=== PATIENT | female | born 1935 | race Caucasian/White ===

== ENCOUNTER 2023-09-05 17:52 | Inpatient (IN) | payer MEDICARE, BC, SELFPAY ==
[2023-09-05] VITALS (10 sets, daily range): BP systolic 91–123; BP diastolic 54–87; BMI 21.3
[2023-09-05 14:38] LABS: % Basophils 0.4 % (0-2); % Monocytes 7.4 % (1.7-9.3); % Neutrophils 80.2 % (42.2-75.2); Absolute Immature Granulocytes 0.1 10^3/uL (0-0.05); Absolute Lymphocytes 1.2 10^3/uL (1.2-3.4); Absolute Monocytes 0.8 10^3/uL (0.1-0.6); Absolute Neutrophils 8.4 10^3/uL (1.4-6.5); Hematocrit 35.1 % (37.0-47.0); Hemoglobin 11.7 g/dL (12.0-16.0); Mean Corp Hgb Conc. 33.3 g/dL (33.0-37.0); Mean Corpuscular Hgb 28.8 pg (27.0-31.0); Mean Corpuscular Volume 86.5 fL (81.0-99.0); Mean Platelet Volume 9.8 fL (7.4-10.4); Nucleated Red Blood Cells % 0 %; Platelet Count 309 10^3/uL (130-400); Red Blood Cell Count 4.06 10^6/uL (4.20-5.40); Red Cell Dist. Width 13.5 % (11.5-14.5); White Blood Cell Count 10.5 10^3/uL (4.8-10.8)
[2023-09-05 14:58] LABS: Urine Albumin 1+ (Neg - Trace); Urine Bilirubin 1+ (Negative); Urine Character Very Cloudy (Clear); Urine Color Yellow; Urine Glucose 3+ (Negative); Urine Ketone 3+ (Negative); Urine Leukocyte 2+ (Negative); Urine Nitrite Positive (Negative); Urine Occult Blood 3+ (Negative); Urine Specific Gravity 1.025 (<1.030); Urine Urobilinogen Negative (Neg - 1+)
[2023-09-05 15:06] LABS: ALT (SGPT) < 10 U/L (0-35); AST (SGOT) 19 U/L (14-36); Albumin 3.4 g/dl (3.5-5.0); Alkaline Phosphatase 152 U/L (38-126); Blood Urea Nitrogen 18 mg/dl (7-17); Calcium 9.1 mg/dl (8.4-10.2); Carbon Dioxide 27 mmol/L (22-30); Chloride 95 mmol/L (98-107); Glucose 356 mg/dl (70-99); Sodium 128 mmol/L (135-145); Total Protein 6.4 g/dl (6.3-8.2); eGFR > 60.00
[2023-09-05 15:09] LABS: Urine Squamous Cell 0-2 /LPF (Few)
[2023-09-05 15:10] LABS: Urine Bacteria Many (Negative); Urine Red Blood Cell 26-30 /HPF (0-2); Urine White Cell >100 /HPF (0-5)
[2023-09-05 15:33] LABS: Troponin I 0.484 ng/ml
--- NOTE | 2023-09-05 15:45 | ED.GENMED ---
History of Present Illness
General
Chief Complaint: Change in Mental Status
Source: records
Exam Limitations: dementia
Time Seen by Provider: 09/05/23 14:48
Travel History
Have you had any contact with someone who has COVID-19?: Unable to Answer
Do you have any symptoms of coronavirus? Fever > 100 degrees, chills, cough, shortness of breath, sore throat, loss of taste or smell, muscle aches, or headache?: Unable to Answer
History of Present Illness
History of Present Illness:
88-year-old female sent for increased fatigue weakness some increased confusion. Patient states she vomited this morning. Denies chest pain shortness of breath or other complaints. Minimal symptoms currently.
Past History
Past History
ED Past Medical History: HTN, Hypercholesterolemia, NIDDM and Other (Anxiety, depression, rheumatoid arthritis, polymyalgia rheumatica, Parkinson's disease)
Review of Systems
Review of Systems
All Other Systems: Not applicable
Constitutional: Denies fever
Respiratory: Reports no symptoms
Cardiac: Reports no symptoms
Phy Exam
Physical Exam
Physical Exam:
GENERAL: Alert and oriented x 1 in no apparent distress. Elderly and frail
EYE: Orbits normal.
NECK: Supple, no significant adenopathy.
ENT: Pharynx without erythema Black coated tongue
CARDIAC: Regular rate and rhythm without any obvious murmurs.
LUNGS: Clear breath sounds,normal
ABDOMEN: Soft, without focal tenderness or distention
NEUROLOGICAL: Alert and oriented x 1, grossly non-focal
SKIN: Warm and dry, no rash or lesion, no discoloration, skin intact.
MUSCULOSKELETAL: No edema,no deformity.Good color
PSYCH: Normal and appropriate interaction.
Course
Orders/Labs/Results
Orders:
Orders
09/05/23 14:07
Electrocardiogram (*1) Urgent
Reason for Study: CAD
EKG- Treatment ONCE
09/05/23 14:09
Basic Metabolic Panel Urgent
Complete Blood Count/With Diff Urgent
Comprehensive Metabolic Panel Urgent
Osmolality, Random Urine Urgent
Date Specimen was Collected: 09/05/23
Time Specimen was Collected: 14:07
Comment: ADD ON
Urinalysis Reflex To Culture Urgent
Date Specimen was Collected: 09/05/23
Time Specimen was Collected: 14:07
Urine Microscopic Reflex Cult Urgent
Urine Sodium Urgent
Date Specimen was Collected: 09/05/23
Time Specimen was Collected: 14:07
Comment: ADD ON
Urine Culture Urgent
CHAN Source: U
Specimen Description:
Date Specimen was Collected: 09/05/23
Time Specimen was Collected: 14:07
09/05/23 14:44
EKG [Electrocardiogram (*1)] Urgent
Reason for Study: Abnormal EKG
EKG- Treatment ONCE
09/05/23 14:47
Troponin I Urgent
09/05/23 15:44
IV Insert/Care/Rem.- Treatment PRN
0.9% Sodium Chloride 1000 ml [Nss] 1,000 ml IV BOLUS
Cefepime HCl [Maxipime] 2,000 mg IV NOW STA
09/05/23 16:39
Lactic Acid Q4H
Comment: CANCEL 2nd LACTIC ACID IF 1st LACTIC ACID IS LESS THAN 2
Troponin I Q8H
Blood Culture Q30M
CHAN Source: Blood/Venous
Specimen Description:
09/05/23 16:40
Admit/Transfer Patient As Directed
Co-Sign Provider:
Level of Care: Inpatient admission
Assign to:: Telemetry
Physician / Group: Zayas
Diagnosis: UTI, Elevated Trop
Reason for Telemetry: Arrhythmia
Date to Stop Telemetry: 09/08/23
Time to Stop Telemetry: 11:00
Reason for Hospitalization: IV abx
Expected length of stay greater than two midnights?: Yes
ELOS- Estimated Length of Stay in days: 3
I certify the patient meets the requirements for IP care: Yes
09/05/23 16:41
Sterile Water [Sterile Water For Injection] 10 ml .ROUTE .STK-MED ONE
09/05/23 16:43
Code Status As Directed
Resuscitation Status: Do not resuscitate
Based on pt advanced directive or healthcare POA form: Yes
DNR Bracelet Application ONCE
09/05/23 16:47
Blood Culture Q30M
CHAN Source: Blood/Venous
Specimen Description:
09/05/23 17:02
Add On- LAB Routine
Tests Added?: urine sodium, urine osmo
09/06/23 00:30
Troponin I Q8H
09/06/23 06:00
Echo 2D MMode Color/Doppler Routine
Reason for Study: Abnormal EKG, troponin elevation.
09/06/23 08:30
Troponin I Q8H
09/08/23 11:00
DC Protocol for Telemetry ONCE
Abnormal Lab Results
09/05/23 09/05/23 09/05/23
14:09 14:47 16:39
RBC 4.06 L 10^6/uL
(4.20-5.40)
Hgb 11.7 L g/dL
(12.0-16.0)
Hct 35.1 L %
(37.0-47.0)
Abs Immat Gran (auto) 0.1 H 10^3/uL
(0-0.05)
Absolute Neuts (auto) 8.4 H 10^3/uL
(1.4-6.5)
Absolute Monos (auto) 0.8 H 10^3/uL
(0.1-0.6)
Immature Gran % 1.0 H %
(0-0.5)
Neutrophils % 80.2 H %
(42.2-75.2)
Lymphocytes % 11.0 L %
(20.5-51.1)
Sodium 128 L mmol/L
(135-145)
Chloride 95 L mmol/L
(98-107)
BUN 18 H mg/dl
(7-17)
Creatinine 0.5 L mg/dL
(0.6-1.0)
Glucose 356 H mg/dl
(70-99)
Alkaline Phosphatase 152 H U/L
(38-126)
Troponin I 0.484 H* ng/ml 0.433 H* ng/ml
Albumin 3.4 L g/dl
(3.5-5.0)
Urine Ketones 3+ A
(Negative)
Ur Occult Blood Reflex 3+ A
(Negative)
Urine Nitrite (Reflex) Positive A
(Negative)
Urine Bilirubin 1+ A
(Negative)
Leukocyte Esterase Rfl 2+ A
(Negative)
Urine RBC 26-30 A /HPF
(0-2)
Urine WBC (Reflex) >100 A /HPF
(0-5)
Urine Bacteria (Reflex) Many A
(Negative)
Urine Sodium 12 L mmol/L
(30-90)
Urine Glucose 3+ A
(Negative)
Urine Albumin (Reflex) 1+ A
(Neg - Trace)
09/05/23 14:09
09/05/23 14:09
Vital Signs
Initial and Last Documented VS:
Initial Vital Signs
Pulse Resp
99 11
09/05/23 14:12 09/05/23 14:12
Last Documented Vital Signs
Temp Pulse Resp BP
97.5 F 92 22 98/56
09/05/23 14:15 09/05/23 18:00 09/05/23 18:00 09/05/23 18:00
*Pulse Oximetry
Patient hypoxic: no
*EKG
Interpreted by ED Provider?: Yes
Interpretation: abnormal
Comparison EKG: changes noted
Heart Rate: 96
Rate: normal
Rhythm: sinus
[place]: normal axis
Interval: normal interval
QRS Pattern: normal QRS
Ischemia: ST elevation (V2 and V1.)
*Rough Carpenter Interpretation
Rate: normal
Interpretation: normal
Heart Rate: 85
Rhythm: sinus
*Critical Care Note
Total Time (30-74mins, 75-104mins- exclusive of procedures): 40
Data Reviewed
Review of Other/Old Records Reveals: Labs, Records and Discharge Summary
Update Note
Update Note:
Initial EKG suspicious for STEMI. EKG was repeated and unchanged. However patient has no acute cardiac symptoms denying chest pain shortness of breath and is in no distress. Contacted cardiology and invasive cardiology immediately. Invasive
cardiology evaluated and felt not a candidate for STEMI. They were informed of the troponin however. Family will also be updated.
ED Attending Note
-
Portions of this chart may have been created with voice recognition software.� Occasional wrong word or��sound alike� substitutions may have occurred due to the inherent limitations of voice recognition software.
Discharge Plan
Departure
Patient Disposition: Admit
Date of Disposition: 09/05/23
Time of Disposition: 15:47
Presentation/result/management discussed w/ accepting MD/DO: Cardiology
Discharge Problem:
Acute [place], Recurrent UTI, Hyponatremia
Interventions
Interventions:
*Risk Screen - Suicide Last Done: 09/05/23 14:24
*General Assessment Last Done: 09/05/23 14:24
*Neglect/Abuse Screening Last Done: 09/05/23 14:24
ED- Fall Risk Assessment Last Done: 09/05/23 14:24
*ED COVID-19 Vaccine History Last Done: 09/05/23 14:24
ED- Pulmonary Assessment Last Done: 09/05/23 14:24
ED- Neurological Assessment Last Done: 09/05/23 14:24
ED- Cardiac Assessment Last Done: 09/05/23 14:24
ED Swallowing Screen Last Done: 09/05/23 18:56
--- NOTE | 2023-09-05 15:49 | CON.CAR ---
Consultation
Consultation Request
Date/Time Consultation Requested: 09/05/2023; 14:49
Date/Time Consultation Performed: 09/05/2023; 15:15
Requesting Provider: Surya Yuan M.D.
Performing Provider: Hesham Griffin D.O.
Reason for Consultation: Abnormal ECG.
Medical History
-
Chief Complaint: Abnormal ECG, nausea/vomiting.
History of Present Illness:
88 y/o female with Parkinson's disease with associated dementia, HTN, NIDDM, polymyalgia rheumatica, fall with hip Fx s/p gamma nail (07/11/2023) and recent ER admission for diverticulitis/UTI (08/19/2023) now presenting with increasing lethargy,
nausea and vomiting with associated fatigue. The patient was evaluated and denied chest pain, shortness in breath, diaphoresis, palpitations, syncope or presyncope. She knows that she is in [facility] ER, but has a history of progressive
dementia. EKG in the ER showed isolated ST elevation in V2. Cardiology was consulted for possible acute coronary syndrome. Initial troponin is 0.484.
Past Medical History
Past Medical History: HTN, NIDDM and Other (Parkinson's disease, dementia.)
Past Surgical History: Orthopedic (Gamma Nail to right hip.)
Social History
Tobacco: Non-Smoker
Alcohol: None
Drug: None
Living: [facility]
Employment: Retired
Family History
Family History: Reviewed & Not Pertinent
Allergies / Home Medications
Allergy/AdvReac Type Severity Reaction Status Date / Time
aspirin Allergy Unknown Verified 09/05/23 14:08
codeine Allergy Unknown Verified 09/05/23 14:08
latex Allergy Unknown Verified 09/05/23 14:08
metformin Allergy Unknown Verified 09/05/23 14:08
rubber, unspecified Allergy Unknown Verified 09/05/23 14:08
thiopental [From Pentothal] Allergy Unknown Verified 09/05/23 14:08
Medication Instructions Recorded Confirmed Type
acetaminophen 325 mg tablet 650 mg PO Q4HPRN PRN mild pain 10/01/22 09/05/23 History
(Tylenol)
bisacodyl 10 mg rectal suppository 10 mg IN [id number] PRN if no bm on 10/01/22 09/05/23 History
(Dulcolax (bisacodyl)) 3rd day
carbidopa 25 mg-levodopa 100 mg 1.5 tab PO TID Neurological 10/01/22 09/05/23 History
tablet Condition
famotidine 20 mg tablet (Pepcid) 20 mg PO BID Gastrointestinal issue 10/01/22 09/05/23 History
magnesium hydroxide 400 mg/5 mL 2,400 mg PO HSPRN PRN constipation 10/01/22 09/05/23 History
oral suspension (Milk of Magnesia)
magnesium oxide 400 mg PO BID Supplement 10/01/22 09/05/23 History
methylprednisolone 2 mg tablet 2 mg PO BID Anti-inflammatory 10/01/22 09/05/23 History
metoprolol succinate 25 mg 25 mg PO DAILY #30 tabs 10/06/22 09/05/23 Rx
tablet,extended release 24 hr
(Toprol XL)
calcium carbonate 200 mg calcium 200 mg PO HSPRN PRN gerd 10/13/22 09/05/23 History
(500 mg) chewable tablet (Tums)
duloxetine 30 mg capsule,delayed 30 mg PO DAILY Mental 07/10/23 09/05/23 History
release sprinkle Health/Anxiety
docusate sodium 100 mg capsule 100 mg PO DAILY 09/05/23 09/05/23 History
donepezil 5 mg tablet 5 mg PO DAILY 09/05/23 09/05/23 History
Review of Systems
-
Unable to obtain full review of systems at this time due to: Dementia
History Source: Patient
Constitutional: Fatigue
EENT: No Symptoms
Respiratory: No Symptoms
Cardiac: No Symptoms
Abdomen/GI: Abdominal Pain, Nausea, Vomiting and Anorexia
: No Symptoms
Musculoskeletal: No Symptoms
Physical Exam
Vital Signs
Temp Pulse Resp BP
36.4 C 100 20 120/84
09/05/23 14:15 09/05/23 15:15 09/05/23 15:15 09/05/23 15:00
Lab Results
09/05/23 14:09
09/05/23 14:09
Troponin I 0.484 ng/ml H* 09/05/23 14:47
Physical Exam
General: Well Developed and Poor Appetite
HEENT: Normocephalic, Anicteric and Other (Dry mucous membranes with black scaling/discoloration of the tongue.)
Respiratory: Clear and Non Labored Respirations
Cardiac: S1/S2 and Regular Rhythm
Breast: Deferred by me
GI: Soft and Tender (Mildly tender in the lower quadrants.)
Rectal: Deferred by Provider
Musculoskeletal: No Clubbing, No Cyanosis and No Edema
Skin: Warm and Dry
Neuro: Other (Asleep but easily arousable.)
Impression / Plan
-
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
abdominal pain of unclear duration, isolated ST elevation in V2 and elevated troponin.
#Abnormal troponin/Isolated ST elevation in V2
-Acute.
-Initial troponin 0.484. Trend to peak.
-I suspect this is a non-VT troponin given the isolated ST changes without clear reciprocal changes and a complete lack of chest pain/shortness in breath or other secondary ACS symptoms.
-Echocardiogram to evaluate wall motion abnormalities.
#Nausea/vomiting/abdominal pain
-Recent ER admission with diverticulitis treated with cefdinir (no ciprofloxacin/metronidazole due to drug drug interaction).
-Visibly dehydrated.
-Bolus with LR 500 mL and repeat until she is euvolemic.
-DDx is broad but is certainly concerning for recurrent/complex diverticulitis, nephrolithiasis, UTI (resistant organism) or other abdominal syndrome.
#Parkinson's Disease/Progressive Dementia
-Chronic.
-Reasonable lucid at the bedside.
-Continue donepezil and carbidopa/levodopa.
-Monitor for acute delerium on chronic dementia (seen during prior admissions).
#NIDDM
-Chronic, stable.
-Glucose elevated today in the acute setting.
-Management per primary team.
#Polymyalgia Rheumatica
-Chronic, stable.
-No current signs/symptoms.
-Maintain methylprednisolone. This does immunocompromise her.
#Dispo
-Admit to hospital service.
-We will be happy to follow along in consultation.
Data Reviewed
-
EKG: Tracing Personally Visualized and interpreted, Discussed with Physician and Discussed with Patient
Radiology: Image Personally Visualized and interpreted and Report Reviewed by me
Labs: Labs Reviewed by me, Discussed with Physician, Discussed with Nurse and Discussed with Patient
[2023-09-05] MEDS: MAXIPIME 2000 MG IV (16:45)
[2023-09-05] MEDS: NSS 1000 IV ×2 (16:45→21:58)
--- NOTE | 2023-09-05 16:54 | HPS.HSE ---
Addendum entered and electronically signed by Abel Zayas MD 09/05/23 17:26:
I saw and examined the patient.
The SERVICE WRITER or PA's note was reviewed and I agree with the note.
Comment:
Patient 88-year-old female with history of hypertension, diabetes mellitus, Parkinson's disease, dementia, PMR, diverticular disease, presented to the hospital with nausea vomit and mental status changes along with generalized weakness. She denies
any chest pain or shortness of breath. She had elevated troponin and ST isolated elevation in V2 and cardiology consulted. She also was noted to have a sodium of 128 and last sodium a couple days ago was 130. Her glucose was noted to be 356 and
bicarb 37. She had an abnormal urinalysis with more than 100 WBC in the urine and 26-30 RBCs and positive nitrites. She was referred to hospitalist for evaluation.
Physical exam:
General: Acutely ill
HEENT: Normocephalic, Atraumatic and Moist Mucous Membranes
Respiratory: Clear to Auscultation; Negative Wheezes, Rales or Rhonchi
Cardiac: Regular Rhythm and S1/S2
GI: Soft, Nontender and Nondistended
Musculoskeletal: No Clubbing, No Cyanosis and No Edema
Neuro: Awake, Alert and Disoriented
Psych: Calm, lack of judgment and insight
A/P:
Altered mental status in the setting of abnormal urinalysis, hyponatremia, hyperglycemia, and elevated troponin--> patient likely has a UTI; on review of her records she had urine VRE and Pseudomonas in the past as well as E. coli and Klebsiella, IV
fluids, IV antibiotics, hyponatremia workup, cardiology consult appreciated, follow-up cultures. +/- ID altagracia. Will give further recommendations based on her clinical course.
Original Note:
Family Physician
-
Family Physician: INTERVIEWE UNKNOWN - PT NOT
Chief Complaint
-
Nausea and Vomiting
History of Present Illness
Patient is an 88 y/o female past medical history of Parkinson's and Dementia who presents with weakness, nausea and vomiting. Patient is a limited historian. She was seen here at the [facility] ED two weeks ago at which time she was
diagnosed with diverticulitis and discharge on cefdinir and metronidazole. Urine culture grew Pseudomonas and VRE, but it is unclear if antibiotics were changed. She was noted by staff to have persistent decreased appetite. Patient admits to
nausea/vomiting, and suprapubic abdominal discomfort. There are no reports of fevers.
Medical History
Past Medical History
Past Medical History: Reports Other
Additional Past Medical History:
Diabetes Mellitus, Type II
Essential Hypertension
Chronic Hyponatremia
Parkinson's Disease
Dementia
GERD
Polymyalgia Rheumatica
Past Surgical History: Reports Other
Additional Past Surgical History:
Bilateral Hip ORIF
Social History
Unable to obtain full social history at this time due to: Dementia
Living: Retirement
Family History
Family History: Unable to Obtain
Allergies / Home Medications
Allergies reflects when Allergies were last updated in [facility].
Home Medications with original date entered in [facility]
Allergy/Medication List:
Allergies
Allergy/AdvReac Type Severity Reaction Status Date / Time
aspirin Allergy Unknown Verified 09/05/23 14:08
codeine Allergy Unknown Verified 09/05/23 14:08
latex Allergy Unknown Verified 09/05/23 14:08
metformin Allergy Unknown Verified 09/05/23 14:08
rubber, unspecified Allergy Unknown Verified 09/05/23 14:08
thiopental [From Pentothal] Allergy Unknown Verified 09/05/23 14:08
Home Medications
acetaminophen 325 mg tablet (Tylenol) 650 mg PO Q4HPRN PRN mild pain 10/01/22
bisacodyl 10 mg rectal suppository (Dulcolax (bisacodyl)) 10 mg NM [id number] PRN if no bm on 3rd day 10/01/22
carbidopa 25 mg-levodopa 100 mg tablet 1.5 tab PO TID Neurological Condition 10/01/22
famotidine 20 mg tablet (Pepcid) 20 mg PO BID Gastrointestinal issue 10/01/22
magnesium hydroxide 400 mg/5 mL oral suspension (Milk of Magnesia) 2,400 mg PO HSPRN PRN constipation 10/01/22
magnesium oxide 400 mg PO BID Supplement 10/01/22
methylprednisolone 2 mg tablet 2 mg PO BID Anti-inflammatory 10/01/22
metoprolol succinate 25 mg tablet,extended release 24 hr (Toprol XL) 25 mg PO DAILY #30 tabs 10/06/22
calcium carbonate 200 mg calcium (500 mg) chewable tablet (Tums) 200 mg PO HSPRN PRN gerd 10/13/22
duloxetine 30 mg capsule,delayed release sprinkle 30 mg PO DAILY Mental Health/Anxiety 07/10/23
docusate sodium 100 mg capsule 100 mg PO DAILY 09/05/23
donepezil 5 mg tablet 5 mg PO DAILY 09/05/23
Review of Systems
-
Unable to obtain full review of systems at this time due to: Dementia
Physical Exam
Vital Signs
Vital Signs
Temp Pulse Resp BP
97.5 F 100 20 120/84
09/05/23 14:15 09/05/23 15:15 09/05/23 15:15 09/05/23 15:00
Physical Exam
General: Comfortable and Conversant
HEENT: Anicteric and Other (Mucous membranes slightly dry)
Respiratory: Clear and Non Labored Respirations
Cardiac: S1/S2 and Regular Rhythm
GI: Soft and Tender (Suprapubic region without rebound or guarding)
Musculoskeletal: No Clubbing, No Cyanosis and No Edema
Skin: Warm and Dry
Neuro: Awake and Nonfocal/grossly intact
Psych: Calm
Laboratory Results
-
09/05/23 14:09
09/05/23 14:09
Laboratory Results
Total Bilirubin 1.0 mg/dl (0.2-1.3) 09/05/23 14:09
AST 19 U/L (14-36) 09/05/23 14:09
ALT < 10 U/L (0-35) 09/05/23 14:09
Alkaline Phosphatase 152 U/L (38-126) H 09/05/23 14:09
Troponin I 0.484 ng/ml H* 09/05/23 14:47
Data Reviewed
-
Lab Data: Labs Reviewed by me
Impression/Plan
-
Urinary Tract Infection
-Reviewed prior urine culture which showed Pseudomonas and VRE
-Transition to Zosyn to cover both organisms
-Await urine culture
Elevated Troponin
-Cardiology evaluated patient in the ED, and did not feel this was related to acute coronary syndrome
-Continue to trend troponin
-Check Echo
Hyponatremia, appears to be combination if pseudohyponatremia and chronic hyponatremia
-Check urine sodium and urine osmolality
-Check TSH
-Recheck sodium in AM
Essential Hypertension
-Continue Toprol XL
Diabetes Mellitus, Type II
-Check HgbA1c
-Monitor sugars and continue coverage
Parkinson's Disease
-Continue Sinemet
-Continue mechanical soft solids as prior to admission
Dementia
-Continue donepezil
-Monitor for mood/behavior changes during hospitalization
GERD
-Continue Pepcid
Polymyalgia Rheumatica
-Continue methylprednisolone
DVT proph: Lovenox
Code Status: DNR
[2023-09-05 17:20] LABS: Lactic Acid 1.5 mmol/L (0.7-2.0)
[2023-09-05 17:23] LABS: Osmolality Urine 730 mOsm/kg (300-900)
[2023-09-05 17:36] LABS: Urine Sodium 12 mmol/L (30-90)
[2023-09-05 17:38] LABS: Troponin I 0.433 ng/ml
--- NOTE | 2023-09-05 19:48 | EDRN ---
Report received, patient resting comfortably and waiting for room to be ready upstairs
[2023-09-05] MEDS: ZOSYN 50 IV (21:58)
[2023-09-05 22:33] LABS: Glucose - Point of Care 220 mg/dl (70-99)
[2023-09-05] MEDS: PEPCID 20 MG PO (22:54)
[2023-09-05] MEDS: COLACE 100 MG PO (22:54)
[2023-09-05] MEDS: MAG-TAB SR 84 MG PO (22:54)
[2023-09-05] MEDS: SINEMET 25-100 1.5 TABLET PO (22:55)
[2023-09-05] MEDS: MEDROL 2 MG PO (22:55)
[2023-09-06] VITALS (8 sets, daily range): BP systolic 91–143; BP diastolic 53–91; PULSE 89; O2SAT 95
[2023-09-06 01:21] LABS: Troponin I 0.407 ng/ml
--- NOTE | 2023-09-06 02:02 | PTCARENOTE ---
Received patient from ER, oriented to name, harsha and that she is in the hospital. Assist of 4 from stretcher to her bed. Patient has hx of pseudomonas and VRE. Nursing tnt line supervisor made aware and patiet will be transferred in a.m. d/t no private
bed available at this time. Patient does not get OOB.
I
[2023-09-06] MEDS: ZOSYN 50 IV ×2 (03:38→10:13)
[2023-09-06 07:14] LABS: Hematocrit 30.7 % (37.0-47.0); Mean Corp Hgb Conc. 32.6 g/dL (33.0-37.0); Mean Corpuscular Hgb 28.3 pg (27.0-31.0); Mean Platelet Volume 10.1 fL (7.4-10.4); Platelet Count 262 10^3/uL (130-400); Red Blood Cell Count 3.53 10^6/uL (4.20-5.40); Red Cell Dist. Width 13.4 % (11.5-14.5); White Blood Cell Count 8.7 10^3/uL (4.8-10.8)
[2023-09-06 07:18] LABS: Troponin I 0.328 ng/ml
[2023-09-06 07:28] LABS: Blood Urea Nitrogen 14 mg/dl (7-17); Calcium 8.4 mg/dl (8.4-10.2); Carbon Dioxide 22 mmol/L (22-30); Chloride 101 mmol/L (98-107); Estimated Creatinine Clearance 57 ml/min; Glucose 239 mg/dl (70-99); Magnesium 1.8 mg/dl (1.6-2.3); Potassium 3.5 mmol/L (3.5-5.1); Sodium 131 mmol/L (135-145); eGFR > 60.00
[2023-09-06 07:46] LABS: TSH Reflex To Free T4 0.87 uIU/ml (0.47-4.68)
[2023-09-06 08:02] LABS: Glucose - Point of Care 213 mg/dl (70-99)
[2023-09-06] MEDS: TOPROL XL PO (08:39)
[2023-09-06] MEDS: MAG-TAB SR PO ×3 (08:39→21:57)
[2023-09-06] MEDS: SINEMET 25-100 1.5 TABLET PO (08:41)
[2023-09-06] MEDS: COLACE PO ×3 (08:41→22:00)
[2023-09-06] MEDS: PEPCID 20 MG PO (08:42)
[2023-09-06] MEDS: ARICEPT 5 MG PO (08:42)
[2023-09-06] MEDS: CYMBALTA DELAYED RELEASE 30 MG PO (08:42)
[2023-09-06] MEDS: MEDROL 2 MG PO (08:42)
--- NOTE | 2023-09-06 08:42 | W.PN.HOSP.TC ---
Today's Communication/Plan
-
Cont iv antibiotics. Echo. Speech therapy swallowing eval.
Assessment / Plan
Assessment / Plan
Physical exam:
General: Acutely ill
HEENT: Normocephalic, Atraumatic and Moist Mucous Membranes
Respiratory: Clear to Auscultation; Negative Wheezes, Rales or Rhonchi
Cardiac: Regular Rhythm and S1/S2
GI: Soft, Nontender and Nondistended
Musculoskeletal: No Clubbing, No Cyanosis and No Edema
Neuro: Awake, Alert and Disoriented
Psych: Calm, lack of judgment and insight
A/P:
Urinary Tract Infection
-E Coli
-Change to Rocephin
Dysphagia
-SP eval
-NPO and ivf for now
Elevated Troponin-->Non HI elevated trop by cardiology.
-Cardiology evaluated patient in the ED, and did not feel this was related to acute coronary syndrome
-Checked Echo and likely Takotsubo
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
-cardiac meds per cardio
-ok gentle ivf while npo but watch volume status-->will diurese if needed later.
-B-blockers
-Unable to tolerate other heart failure meds due to hypotension.
Hyponatremia, appears to be combination if pseudohyponatremia and chronic hyponatremia
-Checked urine sodium (low) and urine osmolality (high)
-Checked TSH
-Recheck sodium in AM
Essential Hypertension
-Continue Toprol XL
Diabetes Mellitus, Type II
-Checked HgbA1c
-Monitor sugars and continue coverage
Parkinson's Disease
-Continue Sinemet
-SP recommends NPO
Dementia
-Continue donepezil
-Monitor for mood/behavior changes during hospitalization
GERD
-Continue Pepcid
Polymyalgia Rheumatica
-Continue methylprednisolone when able to take oral-->maybe change to iv if prolonged npo or hypotension.
DVT proph: Lovenox
Code Status: DNR
Anticipated Discharge: > 48 hours
Subjective/Interval History
-
Date of Service: September 06, 2023
Patient seen and examined.
Objective Data
-
Labs:
Laboratory Results
09/06/23
06:20
WBC 8.7
Hgb 10.0 L
Hct 30.7 L
Plt Count 262
Sodium 131 L
Potassium 3.5
Chloride 101
Carbon Dioxide 22
BUN 14
Creatinine 0.4 L
Glucose 239 H
Calcium 8.4
Vital Signs:
Vital Signs
Temp Pulse Resp BP Pulse Ox
97.5 F 105 18 143/91 100
09/06/23 07:35 09/06/23 07:35 09/06/23 07:35 09/06/23 07:35 09/06/23 07:35
Review of Systems
-
Unable to obtain full review of systems at this time due to: Dementia
[2023-09-06] MEDS: NOVOLOG FLEXPEN-LOW RESISTANCE 2 UNITS SC ×2 (08:57→11:52)
--- NOTE | 2023-09-06 09:43 | CARDSERVLU ---
Echocardiogram with Lumason completed after protocol screening completed. Allergies verified.
Patent IV site: __existing site 20P RFA___
IV site flushed with 0.9% NaCl pre and post administration.
Diluted bolus method utilized to enhance visualization of ventricular lott.
Total volume given: _3.0___ mL
Patient tolerated all procedures well without complications.
--- NOTE | 2023-09-06 09:45 | W.PN.CD ---
Today's Communication / Plan
-
-Most likely acute nonischemic myocardial injury in the setting of Takotsubo cardiomyopathy (preliminary LVEF ~30%).
-Echocardiogram today preliminarily shows findings consistent with Takotsubo cardiomyopathy; full report to follow.
-Peak troponin 0.484; trending down.
-Conservative cardiac management overall.
-Continue current dose of Toprol XL; further GDMT (or Lasix) limited by blood pressure limitations.
-Continue supportive care; on antibiotics--management as per primary team.
-No further recommendations from a cardiac standpoint; Cardiology will remain available on an as needed basis.
Impression / Plan
-
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
abdominal pain of unclear duration, isolated ST elevation in V2 and elevated troponin.
#Abnormal troponin/Isolated ST elevation in V2--Takotsubo CM.
-Most likely acute nonischemic myocardial injury in the setting of Takotsubo cardiomyopathy (preliminary LVEF ~30%).
-Echocardiogram today preliminarily shows findings consistent with Takotsubo cardiomyopathy; full report to follow.
-Peak troponin 0.484; trending down.
-Conservative cardiac management overall.
-Continue current dose of Toprol XL; further GDMT (or Lasix) limited by blood pressure limitations.
-Continue supportive care; on antibiotics--management as per primary team.
-No further recommendations from a cardiac standpoint; Cardiology will remain available on an as needed basis.
#Nausea/vomiting/abdominal pain
-Recent ER admission with diverticulitis treated with cefdinir (no ciprofloxacin/metronidazole due to drug drug interaction).
-Management as per primary team.
#Parkinson's Disease/Progressive Dementia
-Chronic.
-Continue donepezil and carbidopa/levodopa.
#NIDDM
-Chronic; management per primary team.
#Polymyalgia Rheumatica
-Chronic, stable.
-Maintain methylprednisolone.
Physical Exam
Vital Signs/Labs
Vital Signs
Temp Pulse Resp BP Pulse Ox
97.5 F 105 18 143/91 100
09/06/23 07:35 09/06/23 07:35 09/06/23 07:35 09/06/23 07:35 09/06/23 07:35
09/05/23 09/06/23 09/07/23
06:59 06:59 06:59
Actual Weight 55.367 kg
09/06/23 06:20
09/06/23 06:20
Magnesium 1.8 mg/dl (1.6-2.3) 09/06/23 06:20
LAB Results
09/05/23 09/05/23 09/06/23
14:47 16:39 00:37
Troponin I 0.484 H* 0.433 H* 0.407 H*
09/06/23
06:20
Troponin I 0.328 H*
Physical Exam
Constitutional: No acute distress and Comfortable
EENT: Anicteric
Cardiovascular: Rhythm & rate is regular, Pedal edema is absent, Systolic murmur present (2/6) and S1S2 is normal
Respiratory: Respiratory effort normal and Other (decreased bibasilar breath sounds)
GI: Soft
Neuro/Psych: Alert and Other (baseline dementia)
Other: Skin (warm, dry, intact)
Data Reviewed
-
Date of Service: September 06, 2023
Echo: Tracing Personally Visualized and interpreted (Preliminary read: EF ~30%, findings consistent with Takotsubo CM.)
Labs: Labs Reviewed by me
[2023-09-06] MEDS: NSS 1000 IV (10:17)
[2023-09-06 10:20] LABS: Glycohemoglobin (HgbA1c) 7.9 % (4.0-5.6)
[2023-09-06] MEDS: TOPROL XL 25 MG PO (11:00)
[2023-09-06 11:33] LABS: Glucose - Point of Care 218 mg/dl (70-99)
--- NOTE | 2023-09-06 12:55 | CM ---
Chart reviewed. Spoke with family at pts bedside
Pt is a LTR at [facility] (bed hold) - confirmed with facility
Per family now total care. Unable to feed self
Plan to return to [facility] at d/c
CM will follow for d/c needs.
Plan - return to previous setting at d/c
--- NOTE | 2023-09-06 14:24 | CON.ID ---
Consultation
-
Date/Time Consultation Requested: September 06, 2023 0847
Date/Time Consultation Performed: September 06, 2023 1425
Requesting Provider: Dr. Abel Zayas
Performing Provider: Dr. Peyton Joe
Reason for Consultation: MDR UTI vs diverticulitis
Chief Complaint / Past History
Chief Complaint
Poor appetite
History of Present Illness
History obtained from review of medical records since patient has dementia and unable to provide a meaningful history. She is a 88-year-old female from care home with history of dementia, diabetes mellitus, polymyalgia rheumatica on steroid who
was recently sent to the ER on August 19 due to increased fatigue, poor appetite, episode of N/V.. CAT scan of the abdomen pelvis showed severe diverticulosis with possible mild acute diverticulitis. She was to discharge on cefdinir and
metronidazole 7 days. Of note urine culture was collected which grew VRE and Pseudomonas. Poor appetite, nausea, vomiting, and weakness. She was sent to the ER on September 05. No fever. She was started on Zosyn. Repeat you urine culture growing
E. coli. Patient also found to have Takotsubo cardiomyopathy. Patient currently confused and unable to give any history.
Past History
Additional Past Medical History:
Diabetes Mellitus, Type II
Essential Hypertension
Chronic Hyponatremia
Parkinson's Disease
Dementia
GERD
Polymyalgia Rheumatica on steroid
Bilateral Hip ORIF
Allergy History:
aspirin Allergy (Verified 09/05/23 14:08)
Unknown
codeine Allergy (Verified 09/05/23 14:08)
Unknown
latex Allergy (Verified 09/05/23 14:08)
Unknown
metformin Allergy (Verified 09/05/23 14:08)
Unknown
rubber, unspecified Allergy (Verified 09/05/23 14:08)
Unknown
thiopental [From Pentothal] Allergy (Verified 09/05/23 14:08)
Unknown
Medications Reviewed: Yes
Current Antibiotics:
Zosyn (d2)
Social History
Tobacco: Non-Smoker
Alcohol: None
Drug: None
Living: [facility]
Family History
Family History: Not Pertinent
Review of Systems
Review of Systems
Unable to obtain due to dementia.
Vital Signs
Temp Pulse Resp BP Pulse Ox
97.4 F 97 18 115/75 92
09/06/23 11:16 09/06/23 11:47 09/06/23 11:16 09/06/23 11:47 09/06/23 11:16
Physical Exam
Physical Exam
Constitutional: Acutely Ill and Chronically Ill
Eyes: Sclera Anicteric
Cardiovascular: Regular Rate and S1/S2
Pulmonary: Clear
Gastrointestinal: Soft, Non Tender, Non Distended and Normal Bowel Sounds
Genito-Urinary: Negative CVA Tenderness
Extremities: Negative Edema
Skin: Negative Rash
Neurological: Other (lethargic)
Psychological: Confused
Lab / Diagnostic Study Results
09/06/23 06:20
09/06/23 06:20
Abs Immat Gran (auto) 0.1 10^3/uL (0-0.05) H 09/05/23 14:09
Absolute Neuts (auto) 8.4 10^3/uL (1.4-6.5) H 09/05/23 14:09
Absolute Lymphs (auto) 1.2 10^3/uL (1.2-3.4) 09/05/23 14:09
Absolute Monos (auto) 0.8 10^3/uL (0.1-0.6) H 09/05/23 14:09
Absolute Basos (auto) 0.0 10^3/uL (0-0.2) 09/05/23 14:09
Immature Gran % 1.0 % (0-0.5) H 09/05/23 14:09
Neutrophils % 80.2 % (42.2-75.2) H 09/05/23 14:09
Lymphocytes % 11.0 % (20.5-51.1) L 09/05/23 14:09
Monocytes % 7.4 % (1.7-9.3) 09/05/23 14:09
Eosinophils % 0.0 % (0-6) 09/05/23 14:09
Basophils % 0.4 % (0-2) 09/05/23 14:09
Lactic Acid Cancelled 09/05/23 19:45
Ur Squamous Epith Cells 0-2 /LPF (Few) 09/05/23 14:09
Microbiology Results
Micro:
09/05/23 14:09 Urine Culture - Preliminary
Urine Escherichia coli
09/06/23 06:22 MRSA Screen - Pending
Nose
09/05/23 16:39 Blood Culture - Pending
Blood/Venous
09/05/23 16:47 Blood Culture - Pending
Blood/Venous
Assessment / Plan
# E. coli bacteruria
- unclear symptomatic or asymptomatic due to dementia
- Narrow Zosyn to ceftriaxone
# Recent possible mild diverticulitis by CT s/p 7 days cefdinir/metronidazole
- Abdomen nontender on exam
# Failure to thrive
# Dementia
--- NOTE | 2023-09-06 14:36 | PTOTSP ---
Pt is dependent for bed mobility, as she has been on previous admissions. Presume pt is at her baseline. No skilled PT needs. PT will sign off.
--- NOTE | 2023-09-06 14:57 | PTOTSP ---
Dysphagia Evaluation
Patient is at an elevated risk for dysphagia and aspiration due to lethargy and AMS from acute on chronic factors (i.e., UTI; dementia, Parkinson's disease). Dysphagia evaluation was limited as a result. COUNTER MANAGER unable to recommend an oral diet at
this time.
Patient has reportedly has had a decline in swallowing function at SNF with pocketing and poor oral intake. Gagging/spitting out pills noted by nursing this date. Patient also with thick black discoloration on tongue and gagging with attempts at
oral care this date.
Recommend:
1. Defer to MD for diet. Consider NPO given AMS/lethargy.
2. Medications - via non-oral means if able
3. Oral care 3-5x daily as patient tolerates
4. Patient is not appropriate for aspiration risk hydration protocol given lethargy, AMS, and current oral hygiene.
5. Will re-assess swallowing as able/appropriate.
--- NOTE | 2023-09-06 14:59 | PTOTSP ---
Dysphagia Evaluation
Dysphagia Evaluation
Patient is at an elevated risk for dysphagia and aspiration due to lethargy and AMS from acute on chronic factors (i.e., UTI; dementia, Parkinson's disease). Dysphagia evaluation was limited as a result. PIEROGI MAKER unable to recommend an oral diet at
this time.
Patient has reportedly had a decline in swallowing function at SNF with pocketing and poor oral intake. Gagging/spitting out pills noted by nursing this date. Patient also with thick black discoloration on tongue and gagging with attempts at oral
care this date.
Recommend:
1. Defer to MD for diet. Consider NPO given AMS/lethargy.
2. Medications - via non-oral means if able
3. Oral care 3-5x daily as patient tolerates
4. Patient is not appropriate for aspiration risk hydration protocol given lethargy, AMS, and current oral hygiene.
5. Will re-assess swallowing as able/appropriate.
[2023-09-06] MEDS: SINEMET 25-100 PO ×2 (15:43→21:57)
[2023-09-06] MEDS: ROCEPHIN 1000 MG IV (15:43)
[2023-09-06] MEDS: STERILE WATER FOR INJECTION 10 ML IV (15:44)
[2023-09-06 17:14] LABS: Glucose - Point of Care 167 mg/dl (70-99)
[2023-09-06] MEDS: NOVOLOG FLEXPEN-LOW RESISTANCE SC ×2 (18:03→18:43)
[2023-09-06] MEDS: PEPCID PO (21:57)
[2023-09-06] MEDS: MEDROL PO (21:57)
[2023-09-06 23:49] LABS: Glucose - Point of Care 127 mg/dl (70-99)
[2023-09-07] VITALS: BP 102/58
[2023-09-07] MEDS: NOVOLOG FLEXPEN-LOW RESISTANCE SC (00:29)
[2023-09-07 02:58] VITALS: BP 104/56
[2023-09-07 05:47] LABS: Glucose - Point of Care 166 mg/dl (70-99)
[2023-09-07 06:00] VITALS: BMI 21.8
[2023-09-07] MEDS: NOVOLOG FLEXPEN-LOW RESISTANCE 1 UNITS SC ×3 (06:15→16:50)
[2023-09-07] MEDS: NSS 1000 IV (06:15)
[2023-09-07 07:00] VITALS: BP 103/70
[2023-09-07 07:04] LABS: % Basophils 0.8 % (0-2); % Eosinophils 1.8 % (0-6); % Immature Granulocytes 0.7 % (0-0.5); % Lymphocytes 27.9 % (20.5-51.1); % Monocytes 7.5 % (1.7-9.3); % Neutrophils 61.3 % (42.2-75.2); Absolute Basophils 0.1 10^3/uL (0-0.2); Absolute Eosinophils 0.2 10^3/uL (0-0.7); Absolute Immature Granulocytes 0.1 10^3/uL (0-0.05); Absolute Lymphocytes 2.3 10^3/uL (1.2-3.4); Absolute Monocytes 0.6 10^3/uL (0.1-0.6); Absolute Neutrophils 5.1 10^3/uL (1.4-6.5); Hematocrit 29.4 % (37.0-47.0); Hemoglobin 9.7 g/dL (12.0-16.0); Mean Corpuscular Hgb 28.4 pg (27.0-31.0); Nucleated Red Blood Cells % 0 %; Platelet Count 249 10^3/uL (130-400); Red Blood Cell Count 3.42 10^6/uL (4.20-5.40); Red Cell Dist. Width 13.5 % (11.5-14.5); White Blood Cell Count 8.4 10^3/uL (4.8-10.8)
[2023-09-07 07:27] LABS: Blood Urea Nitrogen 12 mg/dl (7-17); Calcium 8.2 mg/dl (8.4-10.2); Carbon Dioxide 22 mmol/L (22-30); Chloride 103 mmol/L (98-107); Estimated Creatinine Clearance 57 ml/min; Glucose 174 mg/dl (70-99); Potassium 3.1 mmol/L (3.5-5.1); Sodium 133 mmol/L (135-145); eGFR > 60.00
--- NOTE | 2023-09-07 07:35 | W.PN.HOSP.TC ---
Today's Communication/Plan
-
IV antibiotics, start diet today, cardiac monitoring.
Assessment / Plan
Assessment / Plan
Physical exam:
General: Acutely ill
HEENT: Normocephalic, Atraumatic and Moist Mucous Membranes
Respiratory: Clear to Auscultation; Negative Wheezes, Rales or Rhonchi
Cardiac: Regular Rhythm and S1/S2
GI: Soft, Nontender and Nondistended
Musculoskeletal: No Clubbing, No Cyanosis and No Edema
Neuro: Awake, Alert and Disoriented
Psych: Calm, lack of judgment and insight
A/P:
Urinary Tract Infection
-E Coli
-Cont Rocephin
-Stop ivf
-Discussed with daughter over the phone today 09/07--> will continue with current medical management but if she were to deteriorate we would need to consider hospice and family understands in light of her multiple comorbidities and prognosis.
Dysphagia
-SP eval
-Start diet puree today
Elevated Troponin-->Non ND elevated trop by cardiology.
-Cardiology evaluated patient in the ED, and did not feel this was related to acute coronary syndrome
-Checked Echo and likely Takotsubo
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
-cardiac meds per cardio
-B-blockers
-Unable to tolerate other heart failure meds due to hypotension.
Hyponatremia, appears to be combination if pseudohyponatremia and chronic hyponatremia
-Sodium 133 today
-Checked urine sodium (low) and urine osmolality (high)
-Checked TSH and normal
-Recheck sodium in AM
Hypokalemia
-Replete and trend
Essential Hypertension
-Continue Toprol XL
Diabetes Mellitus, Type II
-Checked HgbA1c and it is 7.9
-Monitor sugars and continue coverage
Parkinson's Disease
-Continue Sinemet
-PT OT eval
Dementia
-Continue donepezil
-Monitor for mood/behavior changes during hospitalization
GERD
-Continue Pepcid
Polymyalgia Rheumatica
-Continue methylprednisolone.
DVT proph: Lovenox
Code Status: DNR
Total time spent on today's encounter was 52 minutes which included time spent in counseling the patient/family regarding diagnosis and treatment plan and prognosis as listed above, goals of care, and symptom management. Case was discussed with
nursing staff, specialists, and care coordinators/case management. All labs and imaging personally reviewed by me. Remainder the time spent in detailed review of previous records, lab data, imaging, and other medical provider documentation.
Anticipated Discharge: > 48 hours
Subjective/Interval History
-
Date of Service: September 07, 2023
Patient seen and examined.
Objective Data
-
Labs:
Laboratory Results
09/07/23
06:27
WBC 8.4
Hgb 9.7 L
Hct 29.4 L
Plt Count 249
Sodium 133 L
Potassium 3.1 L
Chloride 103
Carbon Dioxide 22
BUN 12
Creatinine 0.4 L
Glucose 174 H
Calcium 8.2 L
Vital Signs:
Vital Signs
Temp Pulse Resp BP Pulse Ox
97.3 F 92 18 104/56 98
09/07/23 02:58 09/07/23 02:58 09/07/23 02:58 09/07/23 02:58 09/07/23 02:58
I&O
09/06/23 09/07/23 09/08/23
06:59 06:59 06:59
Intake Total 660 / 660
Balance 660 / 660
[2023-09-07] MEDS: KCL 270 MEQ IV (08:21)
[2023-09-07] MEDS: COLACE PO (08:23)
[2023-09-07] MEDS: PEPCID PO (08:23)
[2023-09-07] MEDS: TOPROL XL PO (08:23)
[2023-09-07] MEDS: MEDROL PO (08:23)
[2023-09-07] MEDS: SINEMET 25-100 PO (08:23)
[2023-09-07] MEDS: CYMBALTA DELAYED RELEASE PO (08:23)
[2023-09-07] MEDS: ARICEPT PO (08:23)
[2023-09-07] MEDS: MAG-TAB SR PO (08:23)
--- NOTE | 2023-09-07 08:55 | PTOTSP ---
Speech Language Pathology
Pt seen for dysphagia tx. Pt awake in bed upon arrival, asking for soda. Xerostomia noted. Set up suction in room and oral care with use of suction toothbrush completed. P.O. trials of thin liquids and regular solids provided. Pt refused
applesauce. Prolonged mastication noted with pt falling asleep while chewing. Post swallow, half of bolus noted in oral cavity. Pt able to clear this with verbal cueing. No overt signs of aspiration noted.
Recommend:
(1) Initiate IDDSI Level 4 (Puree) and thin liquids
(2) Aspiration precautions: full supervision, slow rate, sit upright, oral care post meals with suctioning
(3) Trial meds whole with liquid as pt does not like applesauce
(4) MEDICAL ASSEMBLY to continue to follow
[2023-09-07] MEDS: NSS IV (10:11)
[2023-09-07 11:00] VITALS: BP 115/67
[2023-09-07 12:05] LABS: Glucose - Point of Care 167 mg/dl (70-99)
--- NOTE | 2023-09-07 13:35 | W.PN.ID1 ---
Date of Service
Date of Service: September 07, 2023
Today's Communication
Today is last day of ceftriaxone (day 3 abx).
ID will sign off.
Assessment / Plan
# E. coli bacteruria
- unclear symptomatic or asymptomatic due to dementia
- Treat as uncomplicated cystitis.
- Today is last day of ceftriaxone (day 3 abx).
-ID signing off.
# Recent possible mild diverticulitis by CT s/p 7 days cefdinir/metronidazole
- Abdomen nontender on exam
# Failure to thrive
# Dementia
#Additional Past Medical History:
Diabetes Mellitus, Type II
Essential Hypertension
Chronic Hyponatremia
Parkinson's Disease
Dementia
GERD
Polymyalgia Rheumatica on steroid
Bilateral Hip ORIF
Chief Complaint
-: UTI
Subjective / Review of Systems
Mumbling
Vital Signs / Physical Exam
Vital Signs
Vital Signs
Temp Pulse Resp BP Pulse Ox
97.4 F 96 18 115/67 97
09/07/23 11:00 09/07/23 11:00 09/07/23 11:00 09/07/23 11:00 09/07/23 11:00
Physical Exam
Constitutional: Comfortable and Chronically Ill
Cardiovascular: Regular Rate and S1/S2
Pulmonary: Clear
Gastrointestinal: Soft, Non Tender and Non Distended
Genito-Urinary: Negative CVA Tenderness
Objective Data
Lab Data
Lab Results
09/07/23 06:27
09/07/23 06:27
Estimated Creat Clear 57 ml/min 09/07/23 06:27
Lactic Acid Cancelled 09/05/23 19:45
Total Bilirubin 1.0 mg/dl (0.2-1.3) 09/05/23 14:09
AST 19 U/L (14-36) 09/05/23 14:09
ALT < 10 U/L (0-35) 09/05/23 14:09
Alkaline Phosphatase 152 U/L (38-126) H 09/05/23 14:09
Most recent labs reviewed.
Micro Results:
09/06/23 06:22 MRSA Screen - Final
Nose No Methicillin Resistant Staphylococcus aureus isolated.
09/05/23 14:09 Urine Culture - Final
Urine Escherichia coli
09/05/23 16:47 Blood Culture - Preliminary
Blood/Venous No Growth in 24 hours- Final report to follow
09/05/23 16:39 Blood Culture - Preliminary
Blood/Venous No Growth in 24 hours- Final report to follow
[2023-09-07 15:00] VITALS: BP 108/59
[2023-09-07 16:45] LABS: Glucose - Point of Care 192 mg/dl (70-99)
[2023-09-07] MEDS: ROCEPHIN 1000 MG IV (16:49)
[2023-09-07] MEDS: SINEMET 25-100 1.5 TABLET PO ×2 (16:50→20:48)
[2023-09-07] MEDS: STERILE WATER FOR INJECTION 10 ML IV (16:50)
[2023-09-07] MEDS: FLUSH (NSS) 2 FLUSH IV (16:51)
[2023-09-07 19:00] VITALS: BP 108/65
[2023-09-07] MEDS: COLACE 100 MG PO (20:45)
[2023-09-07] MEDS: MEDROL 2 MG PO (20:45)
[2023-09-07] MEDS: MAG-TAB SR 84 MG PO (20:46)
[2023-09-07] MEDS: PEPCID 20 MG PO (20:46)
[2023-09-07 21:55] LABS: Glucose - Point of Care 149 mg/dl (70-99)
[2023-09-08] VITALS (7 sets, daily range): BP systolic 98–116; BP diastolic 37–82; BMI 21.9
--- NOTE | 2023-09-08 06:00 | PTCARENOTE ---
@2000;Attempted to feed patient.Pt ate only 1/2 teaspoon of mashed potatoes and stated', I already ate.I don't want this'. Pt spit out her medication and stated,'NO, I don't want meds'.Pt returned back to sleeping for the rest os the shift.Pt also
stated,' I don't want that done any more'. Pt was referring to having her BP done'.It appears that pt wants to be left alone to sleep.
[2023-09-08 07:37] LABS: % Basophils 0.9 % (0-2); % Eosinophils 3.9 % (0-6); % Immature Granulocytes 1.1 % (0-0.5); % Lymphocytes 33.5 % (20.5-51.1); % Monocytes 9.1 % (1.7-9.3); % Neutrophils 51.5 % (42.2-75.2); Absolute Basophils 0.1 10^3/uL (0-0.2); Absolute Eosinophils 0.3 10^3/uL (0-0.7); Absolute Immature Granulocytes 0.1 10^3/uL (0-0.05); Absolute Lymphocytes 2.5 10^3/uL (1.2-3.4); Absolute Monocytes 0.7 10^3/uL (0.1-0.6); Absolute Neutrophils 3.8 10^3/uL (1.4-6.5); Hematocrit 30.3 % (37.0-47.0); Hemoglobin 10.3 g/dL (12.0-16.0); Mean Corpuscular Hgb 28.9 pg (27.0-31.0); Mean Corpuscular Volume 84.9 fL (81.0-99.0); Mean Platelet Volume 9.9 fL (7.4-10.4); Nucleated Red Blood Cells % 0 %; Platelet Count 215 10^3/uL (130-400); Red Blood Cell Count 3.57 10^6/uL (4.20-5.40); Red Cell Dist. Width 13.6 % (11.5-14.5); White Blood Cell Count 7.5 10^3/uL (4.8-10.8)
[2023-09-08 07:40] LABS: Blood Urea Nitrogen 8 mg/dl (7-17); Calcium 8.1 mg/dl (8.4-10.2); Carbon Dioxide 23 mmol/L (22-30); Chloride 106 mmol/L (98-107); Estimated Creatinine Clearance 57 ml/min; Glucose 123 mg/dl (70-99); Magnesium 1.4 mg/dl (1.6-2.3); Potassium 3.6 mmol/L (3.5-5.1); Sodium 132 mmol/L (135-145); eGFR > 60.00
--- NOTE | 2023-09-08 08:31 | W.PN.HOSP.TC ---
Addendum entered and electronically signed by Abel Zayas MD 09/08/23 13:32:
Discussed with daughter today and she's in agreement of hospice so will have consult for hospice today.
Addendum entered and electronically signed by Abel Zayas MD 09/08/23 11:50:
Will obtain a CT of the head today.
Original Note:
Today's Communication/Plan
-
IV fluids, IV antibiotics.
Assessment / Plan
Assessment / Plan
Physical exam:
General: Acutely ill
HEENT: Normocephalic, Atraumatic and Moist Mucous Membranes
Respiratory: Clear to Auscultation; Negative Wheezes, Rales or Rhonchi
Cardiac: Regular Rhythm and S1/S2
GI: Soft, Nontender and Nondistended
Musculoskeletal: No Clubbing, No Cyanosis and No Edema
Neuro: Lethargic but responds to verbal stimuli, and Disoriented
Psych: Calm, lack of judgment and insight
A/P:
Urinary Tract Infection
-E Coli
-Cont Rocephin
-Restart ivf again
-Discussed with daughter over the phone on 09/07--> will continue with current medical management but if she were to deteriorate we would need to consider hospice and family understands in light of her multiple comorbidities and prognosis.
Dysphagia
-SP eval
-Start diet puree today
Elevated Troponin-->Non DC elevated trop by cardiology.
-Cardiology evaluated patient in the ED, and did not feel this was related to acute coronary syndrome
-Checked Echo and likely Takotsubo
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
-cardiac meds per cardio
-B-blockers
-Unable to tolerate other heart failure meds due to hypotension.
Hyponatremia, appears to be combination if pseudohyponatremia and chronic hyponatremia
-Sodium 132 today
-Checked urine sodium (low) and urine osmolality (high)
-Checked TSH and normal
-Recheck sodium in AM
Hypokalemia
-Normal today
-Replete and trend
Essential Hypertension
-Continue Toprol XL
Diabetes Mellitus, Type II
-Checked HgbA1c and it is 7.9
-Monitor sugars and continue coverage
Parkinson's Disease
-Continue Sinemet
-PT OT eval
Dementia
-Continue donepezil
-Monitor for mood/behavior changes during hospitalization
GERD
-Continue Pepcid
Polymyalgia Rheumatica
-Continue methylprednisolone.
DVT proph: Lovenox
Code Status: DNR
Anticipated Discharge: > 48 hours
Subjective/Interval History
-
Date of Service: September 08, 2023
Patient lethargic but opens eyes to verbal stimuli, generalized weakness. Looks frail overall. Afebrile
Objective Data
-
Labs:
Laboratory Results
09/08/23
06:50
WBC 7.5
Hgb 10.3 L
Hct 30.3 L
Plt Count 215
Sodium 132 L
Potassium 3.6
Chloride 106
Carbon Dioxide 23
BUN 8
Creatinine 0.3 L
Glucose 123 H
Calcium 8.1 L
Vital Signs:
Vital Signs
Temp Pulse Resp BP Pulse Ox
98.0 F 82 14 102/63 95
09/08/23 03:00 09/08/23 03:00 09/08/23 03:00 09/08/23 03:00 09/08/23 03:00
I&O
09/07/23 09/08/23 09/09/23
06:59 06:59 06:59
Intake Total 660 / 660 200 / 200
Balance 660 / 660 200 / 200
Review of Systems
-
Unable to obtain full review of systems at this time due to: Dementia
[2023-09-08 08:48] LABS: Glucose - Point of Care 144 mg/dl (70-99)
[2023-09-08] MEDS: NOVOLOG FLEXPEN-LOW RESISTANCE SC ×3 (09:33→16:43)
[2023-09-08] MEDS: TOPROL XL PO (09:40)
[2023-09-08] MEDS: COLACE PO ×2 (09:48→21:38)
[2023-09-08] MEDS: ARICEPT PO (09:48)
[2023-09-08] MEDS: CYMBALTA DELAYED RELEASE PO (09:48)
[2023-09-08] MEDS: MEDROL PO ×2 (09:49→21:39)
[2023-09-08] MEDS: PEPCID PO ×2 (09:49→21:39)
[2023-09-08] MEDS: MAG-TAB SR PO ×2 (09:49→21:39)
[2023-09-08] MEDS: SINEMET 25-100 PO ×3 (09:49→21:39)
[2023-09-08] MEDS: MAGNESIUM SULFATE 50 IV (10:24)
[2023-09-08] MEDS: NSS 1000 IV (11:30)
[2023-09-08 11:31] LABS: Glucose - Point of Care 133 mg/dl (70-99)
--- NOTE | 2023-09-08 14:59 | HOSPNOTE ---
Called daughter Verena and discussed hospice care the philosophy. At this time the daughter would like to talk with [facility] and then will give me a call back. More information to follow once daughter calls me back.
--- NOTE | 2023-09-08 16:00 | CM ---
Received referral from attending for hospice. [facility] hosp[facility] liason. Will await determination.
Plan: Case management will continue to follow and assist with discharge planning. Potential hospice.
[2023-09-08 16:42] LABS: Glucose - Point of Care 173 mg/dl (70-99)
[2023-09-09] MEDS: NSS 1000 IV (03:13)
[2023-09-09 03:41] VITALS: BP 104/62; BMI 22.4
[2023-09-09 06:55] LABS: % Basophils 0.9 % (0-2); % Eosinophils 3.2 % (0-6); % Immature Granulocytes 1.1 % (0-0.5); % Lymphocytes 23.9 % (20.5-51.1); % Monocytes 9.4 % (1.7-9.3); % Neutrophils 61.5 % (42.2-75.2); Absolute Basophils 0.1 10^3/uL (0-0.2); Absolute Eosinophils 0.3 10^3/uL (0-0.7); Absolute Immature Granulocytes 0.1 10^3/uL (0-0.05); Absolute Lymphocytes 2.3 10^3/uL (1.2-3.4); Absolute Monocytes 0.9 10^3/uL (0.1-0.6); Absolute Neutrophils 5.9 10^3/uL (1.4-6.5); Hematocrit 31.7 % (37.0-47.0); Hemoglobin 10.3 g/dL (12.0-16.0); Mean Corp Hgb Conc. 32.5 g/dL (33.0-37.0); Mean Corpuscular Hgb 28.2 pg (27.0-31.0); Mean Corpuscular Volume 86.8 fL (81.0-99.0); Mean Platelet Volume 10.3 fL (7.4-10.4); Nucleated Red Blood Cells % 0 %; Platelet Count 227 10^3/uL (130-400); Red Blood Cell Count 3.65 10^6/uL (4.20-5.40); Red Cell Dist. Width 13.3 % (11.5-14.5); White Blood Cell Count 9.6 10^3/uL (4.8-10.8)
[2023-09-09 07:19] LABS: Blood Urea Nitrogen 4 mg/dl (7-17); Calcium 7.8 mg/dl (8.4-10.2); Carbon Dioxide 23 mmol/L (22-30); Chloride 105 mmol/L (98-107); Estimated Creatinine Clearance 57 ml/min; Glucose 135 mg/dl (70-99); Magnesium 1.6 mg/dl (1.6-2.3); Potassium 3.2 mmol/L (3.5-5.1); Sodium 132 mmol/L (135-145); eGFR > 60.00
[2023-09-09 07:30] VITALS: BP 132/77
[2023-09-09 08:15] LABS: Glucose - Point of Care 140 mg/dl (70-99)
--- NOTE | 2023-09-09 08:31 | W.PN.HOSP.TC ---
Today's Communication/Plan
-
Hospice evaluation.
Assessment / Plan
Assessment / Plan
Physical exam:
General: Acutely ill
HEENT: Normocephalic, Atraumatic and Moist Mucous Membranes
Respiratory: Clear to Auscultation; Negative Wheezes, Rales or Rhonchi
Cardiac: Regular Rhythm and S1/S2
GI: Soft, Nontender and Nondistended
Musculoskeletal: No Clubbing, No Cyanosis and No Edema
Neuro: Lethargic but responds to verbal stimuli, and Disoriented
Psych: Calm, lack of judgment and insight
A/P:
Urinary Tract Infection
-E Coli
-Finished course of Rocephin
-Restart ivf again, but now can stop.
-Discussed with daughter over the phone on 09/08--> family agrees to move forward with comfort care measures.
-Hospice care consulted--> awaiting for evaluation.
Metabolic encephalopathy
-CT of head unremarkable
Dysphagia
-SP eval, unsafe to eat diet if moving to comfort care can eat for pleasure
Elevated Troponin-->Non MD elevated trop by cardiology.
-Cardiology evaluated patient in the ED, and did not feel this was related to acute coronary syndrome
-Checked Echo and likely Takotsubo
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
-cardiac meds per cardio
-B-blockers
-Unable to tolerate other heart failure meds due to hypotension.
Hyponatremia, appears to be combination if pseudohyponatremia and chronic hyponatremia
-Sodium 132 today
-Checked urine sodium (low) and urine osmolality (high)
-Checked TSH and normal
Hypokalemia
-Replete on 09/09
Essential Hypertension
-Continue Toprol XL
Diabetes Mellitus, Type II
-Checked HgbA1c and it is 7.9
-Monitor sugars and continue coverage
Parkinson's Disease
-Continue Sinemet
-PT OT eval
Dementia
-Continue donepezil
-Monitor for mood/behavior changes during hospitalization
GERD
-Continue Pepcid
Polymyalgia Rheumatica
-Continue methylprednisolone.
DVT proph: Lovenox
Code Status: DNR
Anticipated Discharge: 24 - 48 hours
Subjective/Interval History
-
Date of Service: September 09, 2023
Patient seen and examined.
Objective Data
-
Labs:
Laboratory Results
09/09/23
06:32
WBC 9.6
Hgb 10.3 L
Hct 31.7 L
Plt Count 227
Sodium 132 L
Potassium 3.2 L
Chloride 105
Carbon Dioxide 23
BUN 4 L
Creatinine 0.3 L
Glucose 135 H
Calcium 7.8 L
Vital Signs:
Vital Signs
Temp Pulse Resp BP Pulse Ox
97.2 F 93 16 132/77 98
09/09/23 07:30 09/09/23 07:30 09/09/23 07:30 09/09/23 07:30 09/09/23 07:30
I&O
09/08/23 09/09/23 09/10/23
06:59 06:59 06:59
Intake Total 200 / 200 705 / 705
Balance 200 / 200 705 / 705
[2023-09-09] MEDS: NOVOLOG FLEXPEN-LOW RESISTANCE SC ×2 (08:34→17:43)
--- NOTE | 2023-09-09 08:42 | HOSPNOTE ---
Spoke with daughter this am again and she stated prior to the patient coming to they had met with [facility] and would like patient transferred back to [place] and then signed onto services with [facility].
[2023-09-09] MEDS: KCL 270 MEQ IV (09:19)
[2023-09-09] MEDS: SINEMET 25-100 1.5 TABLET PO ×3 (09:24→22:18)
[2023-09-09] MEDS: MEDROL PO ×2 (09:55→19:41)
[2023-09-09] MEDS: TOPROL XL PO (09:55)
[2023-09-09] MEDS: PEPCID PO ×2 (09:55→19:41)
[2023-09-09] MEDS: MAG-TAB SR PO ×2 (09:55→19:41)
[2023-09-09] MEDS: COLACE PO ×2 (09:55→19:41)
[2023-09-09] MEDS: CYMBALTA DELAYED RELEASE PO (09:55)
[2023-09-09] MEDS: ARICEPT PO (09:55)
[2023-09-09 11:26] VITALS: BP 115/70
[2023-09-09 12:41] LABS: Glucose - Point of Care 180 mg/dl (70-99)
[2023-09-09] MEDS: NOVOLOG FLEXPEN-LOW RESISTANCE 1 UNITS SC (13:43)
--- NOTE | 2023-09-09 14:29 | CM ---
Spoke with attending who stated that patient is medically stable for discharge. Spoke with patient who is agreeable to discharge today. Will provide IMM.
Plan: Case management will continue to follow and assist with discharge planning. Patient medically cleared for discharge.
[2023-09-09 15:30] VITALS: BP 114/71
--- NOTE | 2023-09-09 15:32 | CM ---
Spoke with patient's daughter who wanted to know why patient wasn't being discharged today. Spoke with attending through [facility] and he stated that patient will be discharged tomorrow. Patient's daughter updated. She wanted more clarification and
therefore she was directed to RN. IMM provided in anticipation of discharge tomorrow. Reviewed with patient's daughter. She refused to sign as she stated that her father would have to do it but they won't be here tomorrow and he left today. Placed
IMM on chart and documented that it was verbally reviewed.
Plan: Case management will continue to follow and assist with discharge planning. Back to [facility] when medically stable. Once she is there she will sign on to hospice.
[2023-09-09 17:29] LABS: Glucose - Point of Care 142 mg/dl (70-99)
[2023-09-09] MEDS: NSS IV (17:42)
[2023-09-09 21:29] LABS: Glucose - Point of Care 132 mg/dl (70-99)
[2023-09-09 23:30] VITALS: BP 122/65
[2023-09-10 06:00] VITALS: BMI 24.7
[2023-09-10 07:20] VITALS: BP 113/65
--- NOTE | 2023-09-10 07:46 | W.PN.HOSP.TC ---
Today's Communication/Plan
-
Continue current management. Discharge planning for possible today.
Assessment / Plan
Assessment / Plan
Physical exam:
General: Acutely ill
HEENT: Normocephalic, Atraumatic and Moist Mucous Membranes
Respiratory: Clear to Auscultation; Negative Wheezes, Rales or Rhonchi
Cardiac: Regular Rhythm and S1/S2
GI: Soft, Nontender and Nondistended
Musculoskeletal: No Clubbing, No Cyanosis and No Edema
Neuro: Lethargic but responds to verbal stimuli, and Disoriented
Psych: Calm, lack of judgment and insight
A/P:
Urinary Tract Infection
-E Coli
-Finished course of Rocephin
-Restart ivf again, but now can stop.
-Discussed with daughter over the phone on 09/08--> family agrees to move forward with comfort care measures.
-Hospice care consulted
-Plan to discharge to facility on hospice today
Metabolic encephalopathy
-CT of head unremarkable
Dysphagia
-SP eval, unsafe to eat diet if moving to comfort care can eat for pleasure
Elevated Troponin-->Non OK elevated trop by cardiology.
-Cardiology evaluated patient in the ED, and did not feel this was related to acute coronary syndrome
-Checked Echo and likely Takotsubo
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
-cardiac meds per cardio
-B-blockers
-Unable to tolerate other heart failure meds due to hypotension.
Hyponatremia, appears to be combination if pseudohyponatremia and chronic hyponatremia
-Sodium 132 today
-Checked urine sodium (low) and urine osmolality (high)
-Checked TSH and normal
Hypokalemia
-Replete on 09/09
Essential Hypertension
-Continue Toprol XL
Diabetes Mellitus, Type II
-Checked HgbA1c and it is 7.9
-Monitor sugars and continue coverage
Parkinson's Disease
-Continue Sinemet
-PT OT eval
Dementia
-Continue donepezil
-Monitor for mood/behavior changes during hospitalization
GERD
-Continue Pepcid
Polymyalgia Rheumatica
-Continue methylprednisolone.
DVT proph: Lovenox
Code Status: DNR
Anticipated Discharge: Today
Subjective/Interval History
-
Date of Service: September 10, 2023
Patient seen and examined. Patient tells me she has no pain but she does have nausea at times.
Objective Data
-
Vital Signs:
Vital Signs
Temp Pulse Resp BP Pulse Ox
97.5 F 94 18 122/65 99
09/09/23 23:30 09/09/23 23:30 09/09/23 23:30 09/09/23 23:30 09/09/23 23:30
I&O
09/09/23 09/10/23 09/11/23
06:59 06:59 06:59
Intake Total 705 / 705 1909
Balance 705 / 705 1909
[2023-09-10 09:16] LABS: Glucose - Point of Care 127 mg/dl (70-99)
[2023-09-10] MEDS: NOVOLOG FLEXPEN-LOW RESISTANCE SC ×2 (09:52→13:55)
[2023-09-10] MEDS: ARICEPT PO (09:52)
[2023-09-10] MEDS: CYMBALTA DELAYED RELEASE PO (09:53)
[2023-09-10] MEDS: TOPROL XL PO (09:53)
[2023-09-10] MEDS: COLACE PO (09:53)
[2023-09-10] MEDS: MAG-TAB SR PO (09:53)
[2023-09-10] MEDS: MEDROL PO (09:53)
[2023-09-10] MEDS: SINEMET 25-100 PO ×2 (09:53→15:43)
[2023-09-10] MEDS: PEPCID PO (09:53)
[2023-09-10] MEDS: TYLENOL 650 MG PO (10:08)
--- NOTE | 2023-09-10 10:12 | PTCARENOTE ---
Assumed care at 0700. Oriented to self only, confused conversation. Refused to take scheduled meds, however when verbalizing pain, agreeable to take Tylenol, given. Repositioned for comfort. Bed alarm in place and monitoring.
[2023-09-10 12:54] LABS: Glucose - Point of Care 126 mg/dl (70-99)
--- NOTE | 2023-09-10 13:46 | W.DCSUMMARY ---
Discharge Summary
Discharge Data
Date of Admission: 09/05/23
Date of Discharge: 09/17/23
-
Pending Results: No
Hospital Course
Patient 88-year-old female with history of Parkinson's disease with associated dementia, hypertension, diabetes mellitus, polymyalgia rheumatica, diverticular disease, came into the hospital with multiple abnormalities including altered mental
status, hyponatremia, hyperglycemia, elevated troponin, EKG abnormalities, and abnormal urinalysis. ID consulted. Patient was found to have a urinary tract infection that grew E. coli and she was treated with 3 days of IV antibiotics per ID.
Cardiology was also consulted. She was found to have EF of 30% and felt to be Takotsubo syndrome. She was placed on some beta-blockers but unable to tolerate much else medications due to hypotension. Patient did poorly rest of her hospital stay
so we had discussions with family about goals of care and they decided about hospice care and comfort care measures upon transfer to her facility. No other events were noticed. She will be discharged to hospice today.
Discharge duration: 35 minutes
Discharge Plan
-
Patient Disposition: Shelter/SNF
Discharge Diagnosis/Procedures: Urinary tract infection. Metabolic encephalopathy. Dysphagia. Nonmyocardial infarction elevated troponin. Left ventricular systolic dysfunction, probable Takotsubo. Hyponatremia. Hypokalemia. Hypertension.
Diabetes mellitus type 2. Parkinson's disease. Dementia. Polymyalgia rheumatica.
Diet: Other diet
Additional Diets: Comfort regular diet.
Activity: As tolerated
Referrals:
Primary care, provider [Other] (See less than 1 week)
Prescriptions:
Continued
acetaminophen [Tylenol] 325 mg Tablet
650 mg PO Q4HPRN PRN (Reason: mild pain)
methylprednisolone 2 mg Tablet
2 mg PO BID
famotidine [Pepcid] 20 mg Tablet
20 mg PO BID
Hold Instructions: Resume on 07/22/23. Since you are on Cefpodoxime antibiotics, Famotidine is being held while you are on that antibiotic
magnesium hydroxide [Milk of Magnesia] 400 mg/5 mL Suspension
2,400 mg PO HSPRN PRN (Reason: constipation)
bisacodyl [Dulcolax (bisacodyl)] 10 mg Suppository
10 mg FL [id number] PRN (Reason: if no bm on 3rd day)
carbidopa-levodopa 25-100 mg Tablet
1.5 tab PO TID
magnesium oxide 400 mg magnesium Tablet
400 mg PO BID
metoprolol succinate [Toprol XL] 25 mg tablet extended release 24 hr
25 mg PO DAILY Qty: 30 0RF
Rx Instructions:
NEW DOSE
calcium carbonate [Tums] 200 mg calcium (500 mg) Tablet,Chewable
200 mg PO HSPRN PRN (Reason: gerd)
duloxetine 30 mg Capsule, Delayed Rel Sprinkle
30 mg PO DAILY
donepezil 5 mg Tablet
5 mg PO DAILY
docusate sodium 100 mg capsule
100 mg PO DAILY
Discharge Orders:
Discharge Patient (As Directed); Ordered 09/10/23
Ordered By: Abel Zayas
Discharge Date and Time
Discharge Date/Time: 09/10/23 17:30
--- NOTE | 2023-09-10 14:30 | CM ---
Chart reviewed. Pt for d/c - to return to [facility]
Transport arranged for 5:30 PM
Spoke with Chi at [facility] - aware pt will return and given transport time
LM on daughter's VM (Verena) - informed pt to return to [place] and of transport time
Plan - transfer to [facility]
Report - [phone]
Fax - [phone]
[2023-09-10 15:30] VITALS: BP 115/68
--- NOTE | 2023-09-10 15:45 | PTCARENOTE ---
Report given to Michelle Mccauley at [facility]. Family at bedside, updated on discharge plan and expected transport time of 17:30.
== END 2023-09-10 17:30 | DRG 314 ==
LOC: 3 WEST ACU 17:52
PROVIDERS: Emergency Medicine; Physician Assistant Medical; ADMITTING PHYSICIAN Hospitalist; CONSULT PHYSICIAN Internal Medicine Cardiovascular Disease; CONSULT PHYSICIAN Internal Medicine Infectious Disease; EMERGENCY PHYSICIAN Emergency Medicine
DX: I51.81 Takotsubo syndrome (principal); G93.41 Metabolic encephalopathy; N39.0 Urinary tract infection, site not specified; E87.1 Hypo-osmolality and hyponatremia; F02.83 Dementia in other diseases classified elsewhere, unspecified severity, with mood disturbance; I5A Non-ischemic myocardial injury (non-traumatic); G20.A1 Parkinson's disease without dyskinesia, without mention of fluctuations; E11.9 Type 2 diabetes mellitus without complications; B96.20 Unspecified Escherichia coli [E. coli] as the cause of diseases classified elsewhere; E87.6 Hypokalemia; M35.3 Polymyalgia rheumatica; Z66 Do not resuscitate; Z79.84 Long term (current) use of oral hypoglycemic drugs
CPT/HCPCS: 36415; 51701; 70450; 80048; 80053; 81003; 81015; 82962; 83036; 83605; 83735; 83935; 84300; 84443; 84484; 85025; 85027; 87040; 87070; 87077; 87086; 87186; 92526; 92610; 93005; 93306; 97163; 97166; 97530; 99291; Q9950